=== PATIENT | male | born 1950 | race Caucasian/White ===

== ENCOUNTER 2016-10-20 02:35 | Emergency (ER) | payer BC ==
[2016-10-20] MEDS ORDERED: Sodium Chloride 0.9% 10 ML Syringe FLUSH PRN (03:07)
[2016-10-20 03:27] LABS: CHLORIDE,CL 98 mmol/L (98-107); SODIUM,NA 136 mmol/L (136-145)
--- NOTE | 2016-10-20 03:28 | EDM.PDOC ---
ED HPI GENERAL MEDICAL PROBLEM - General Chief Complaint: General Stated Complaint: dizziness Time Seen by Provider: 10/20/16 03:13 Source of Information: Reports: Patient History Limitations: Reports: No limitations - History of Present Illness INITIAL COMMENTS - FREE TEXT/NARRATIVE: Patient brought in by private vehicle for complaint of nausea and mild dizziness that started around 2am. Denies pain. No fevers. Has been exposed to illness at work. No URI complaints such as sore throat or cough. Has not had vomiting. No bowel changes. Feels a bit clammy upon arrival. Denies any significant past medical history. Non-smoker. Does have HTN and elevated lipids. . - Related Data Allergies Allergy/AdvReac Type Severity Reaction Status Date / Time Penicillins Allergy Rash Verified 10/20/16 02:51 Home Meds: Home Meds Aspirin [Ecotrin] 81 mg PO DAILY 10/20/16 [History] Cholecalciferol (Vitamin D3) [Vitamin D3] 1 ml PO DAILY 10/20/16 [History] Hydrochlorothiazide 25 mg PO DAILY 10/20/16 [History] Metoprolol Succinate [Toprol XL] 25 mg PO DAILY 10/20/16 [History] Oxybutynin 5 mg PO BID 10/20/16 [History] Simvastatin 1 tab PO BEDTIME 10/20/16 [History] Ubidecarenone [Co Q-10] 100 mg PO DAILY 10/20/16 [History] metFORMIN [Glucophage XR] 500 mg PO WITHDINNER #30 tab.er 10/20/16 [Rx] Past Medical History Cardiovascular History: Reports: High cholesterol, Hypertension ED ROS GENERAL - Review of Systems Review Of Systems: See Below Constitutional: Reports: diaphoresis. Denies: fever, chills, malaise, weakness , fatigue, decreased appetite, weight loss, weight gain HEENT: Reports: No symptoms Respiratory: Reports: no symptoms Cardiovascular: Reports: Lightheadedness. Denies: Chest pain, Dyspnea on exertion, Edema, Orthopnea, Palpitations, Syncope Endocrine: Reports: no symptoms GI/Abdominal: Reports: Nausea. Denies: Abdominal pain, Black stool, Bloody stool, Constipation, Diarrhea, Decreased appetite, Difficulty swallowing, Mucous in stool, Vomiting : Reports: no symptoms Musculoskeletal: Reports: no symptoms Skin: Reports: no symptoms Neurological: Reports: dizziness. Denies: confusion, headache, numbness, paresthesia, syncope, tingling, trouble speaking, difficulty walking, weakness, change in speech, gait disturbance Psychiatric: Reports: No symptoms Hematologic/Lymphatic: Reports: no symptoms Immunologic: Reports: no symptoms ED EXAM, GENERAL - Physical Exam Exam: See Below Exam Limited By: No limitations General Appearance: alert, WD/WN, no apparent distress Eye Exam: bilateral eye: EOMI, PERRL Ears: normal external exam, normal canal, hearing grossly normal, normal TMs Nose: normal inspection Throat/Mouth: Normal inspection, Normal voice, No airway compromise, Other ( recently had lower teeth pulled) Head: atraumatic, normocephalic Neck: normal inspection, supple, non-tender, full range of motion. No: lymphadenopathy (L), lymphadenopathy (R) Respiratory/Chest: no respiratory distress, lungs clear, normal breath sounds, no accessory muscle use, chest non-tender Cardiovascular: normal peripheral pulses, regular rate, rhythm, no edema, no JVD , no murmur Peripheral Pulses: 2+: radial (L), radial (R) GI/Abdominal: normal bowel sounds, soft, non tender, no organomegaly, no distention, no abnormal bruit (Male) Exam: Deferred Rectal (Males) Exam: Deferred Back Exam: normal inspection Extremities: normal inspection, normal range of motion, non-tender, no pedal edema, normal capillary refill Neurological: alert, oriented, CN II-XII intact, normal cognition, normal gait, normal reflexes, no motor/sensory deficits Psychiatric: normal affect, normal mood Skin Exam: Warm, Dry, Intact, Normal color, No rash EKG INTERPRETATION EKG Date: 10/20/16 Time: 02:52 Rhythm: other (Sinus bradycardia) Rate (beats/min): 59 [place]: LAD-left axis deviation P-wave: present ST-T: other (ST in V3 slightly unusual) QT: normal Comparison: NA - no prior EKG Course - Vital Signs Last Recorded V/S: Last Vital Signs Temp 36.4 C 10/20/16 02:40 Pulse 65 10/20/16 02:40 Resp 18 10/20/16 02:40 BP 177/87 H 10/20/16 02:40 Pulse Ox 97 10/20/16 02:40 - Orders/Labs/Meds Orders: Active Orders 24 hr Category Date Time Status Blood Glucose Check, Bedside [RC] ONETIME Care 10/20/16 03:07 Active EKG Documentation Completion [RC] ASDIRECTED Care 10/20/16 03:08 Active CBC WITH AUTO DIFF [HEME] Stat Lab 10/20/16 03:05 Received CMP [COMPREHENSIVE METABOLIC PN,CMP] [CHEM] Stat Lab 10/20/16 03:05 Received TROPONIN I [CHEM] Stat Lab 10/20/16 03:05 Received URINALYSIS W/MICROSCOPIC [UA W/MICROSCOPIC] [URIN] Stat Lab 10/20/16 03:08 Uncollected Sodium Chloride 0.9% [Saline Flush] Med 10/20/16 03:07 Active 10 ml FLUSH ASDIRECTED PRN Saline Lock Insert [OM.PC] Routine Oth 10/20/16 03:07 Ordered EKG 12 Lead [EK] Routine Ther 10/20/16 03:08 Ordered Medication Orders Sodium Chloride (Saline Flush) 10 ml FLUSH ASDIRECTED PRN PRN Reason: Keep Vein Open Meds: Medications Generic Name Dose Route Start Last Admin Trade Name Freq PRN Reason Stop Dose Admin Sodium Chloride 10 ml 10/20/16 03:07 Saline Flush FLUSH ASDIRECTED PRN Keep Vein Open - Re-Assessments/Exams Free Text/Narrative Re-Assessment/Exam: 10/20/16 03:52 Blood sugar 377. A1c is 10.8 CBC and troponin unremarkable. Serum ketones negative. Discussed implications of elevated sugar and A1c with patient. Advised admission to hospital for IV fluids and glucose control. Patient refused admission. Wants to go home. Says he will see his primary provider Sergey Conley early next week for physical/diabetes. Patient refused IV fluids in the ER also. Cannot rule out possible early VGE as cause of patient's GI complaints , however elevated blood sugar could be contributing to them also. Plan at this time is to have patient receive regular insulin SQ as well as Zofran. Extensive amount of time spent discussing diet approach to controlling diabetes and maximizing blood sugar control. Patient is to return to the ER for re- evaluation if symptoms become more severe. BP improved over time while in ER. Departure - Departure Time of Disposition: 04:15 Disposition: Against Medical Advice 07 Condition: good Clinical Impression: Nausea, Hyperglycemia Prescriptions: metFORMIN [Glucophage XR] 500 mg PO WITHDINNER #30 tab.er Forms: ED Department Discharge Additional Instructions: Eat low sugar diet, avoid processed foods. If you continue to feel bad tomorrow you need to come back to the ER to be re- evaluated. Follow up with your own provider ELIE next week. Call immediately Friday morning for appointment. We have started you on Metformin. Recommend starting with half a pill daily for one week then increase the dose to help avoid the side effect of loose stools. You will need to purchase a glucose monitory in order to keep track of your blood sugars. Discuss with your doctor getting set up for education on diabetes management. - My Orders Last 24 Hours: My Active Orders 10/20/16 03:05 CBC WITH AUTO DIFF [HEME] Stat CMP [COMPREHENSIVE METABOLIC PN,CMP] [CHEM] Stat TROPONIN I [CHEM] Stat 10/20/16 03:07 Blood Glucose Check, Bedside [RC] ONETIME Sodium Chloride 0.9% [Saline Flush] 10 ml FLUSH ASDIRECTED PRN Saline Lock Insert [OM.PC] Routine 10/20/16 03:08 EKG Documentation Completion [RC] ASDIRECTED URINALYSIS W/MICROSCOPIC [UA W/MICROSCOPIC] [URIN] Stat EKG 12 Lead [EK] Routine - Assessment/Plan Last 24 Hours: My Active Orders 10/20/16 03:05 CBC WITH AUTO DIFF [HEME] Stat CMP [COMPREHENSIVE METABOLIC PN,CMP] [CHEM] Stat TROPONIN I [CHEM] Stat 10/20/16 03:07 Blood Glucose Check, Bedside [RC] ONETIME Sodium Chloride 0.9% [Saline Flush] 10 ml FLUSH ASDIRECTED PRN Saline Lock Insert [OM.PC] Routine 10/20/16 03:08 EKG Documentation Completion [RC] ASDIRECTED URINALYSIS W/MICROSCOPIC [UA W/MICROSCOPIC] [URIN] Stat EKG 12 Lead [EK] Routine
[2016-10-20 03:35] VITALS: BP 148/91
[2016-10-20] MEDS ORDERED: Insulin Regular, Human 100 Units/ML 3 ML Vial SUBCUT ONE (03:42)
[2016-10-20] MEDS ORDERED: Ondansetron 4 MG Tab.DIS PO ONE (03:42)
[2016-10-20] MEDS ORDERED: Meclizine 25 MG Tab PO ONE (03:43)
[2016-10-20] MEDS ORDERED: metFORMIN 500 MG Tab PO ONE (03:58)
== END 2016-10-20 04:15 | disposition left against medical advice (07) ==
LOC: LL.ED 02:35
DX: R11.0 Nausea (principal); R73.9 Hyperglycemia, unspecified; E78.00 Pure hypercholesterolemia, unspecified; I10 Essential (primary) hypertension; Z88.0 Allergy status to penicillin; Z79.899 Other long term (current) drug therapy
CPT/HCPCS: 36000; 36415; 80053; 81001; 82009; 83036; 84484; 85025; 93005; 96372; 99284; A9270; J1815

== ENCOUNTER 2017-11-13 11:30 | Day surgery (SDC) | payer BC ==
[2017-11-13] MEDS ORDERED: Propofol 200 MG/20 ML SDV ONE (11:51)
[2017-11-13] MEDS: Lactated Ringers 1,000 ML IV SCH (12:00)
[2017-11-13] MEDS ORDERED: Sodium Chloride 0.9% 10 ML Syringe FLUSH PRN (12:00)
--- NOTE | 2017-11-13 12:25 | PCM.OPNOTE ---
- General Post-Op/Procedure Note Date of Surgery/Procedure: 11/13/17 Operative Procedure(s): Colonoscopy Findings: Normal Pre Op Diagnosis: FH colon polyp Post-Op Diagnosis: Same Anesthesia Technique: MAC Primary Surgeon: Armand Suárez Complications: None Condition: Good Free Text/Narrative:: Intake & Output 11/12/17 11/13/17 11/13/17 22:59 06:59 14:59 Intake Total 600 Balance 600
[2017-11-13 14:26] VITALS: BP 118/75
--- NOTE | 2017-11-13 15:15 | OR ---
Date of Procedure: 11/13/2017 PREOPERATIVE DIAGNOSIS: Family history of colon polyps in brother. POSTOPERATIVE DIAGNOSIS: Normal colonoscopy. PROCEDURE: Colonoscopy. ANESTHESIA: IV sedation. PROCEDURE IN DETAIL: The patient was brought to the procedure room where he was placed on his left side, and IV sedation was administered. Digital rectal exam was performed which was normal. Colonoscope was inserted and advanced to the level of the cecum without difficulty. Cecal position was confirmed by identifying the appendiceal lumen and ileocecal valve. Prep was good and surfaces were well visualized. Upon withdrawing the scope, the ascending, transverse, and descending colon were normal in appearance. Sigmoid colon and rectum were normal. Retroflexion was normal. Air was removed and the scope withdrawn. The patient tolerated the procedure well and returned to Recovery in stable condition. Recommend routine colon screening in 5 years. KUMAR PHELPS MD /[id number]
== END 2017-11-13 13:35 | disposition home or self-care (01) ==
LOC: LL.SDS 11:30
PROVIDERS: ATTEND Surgery
DX: Z12.11 Encounter for screening for malignant neoplasm of colon (principal); I10 Essential (primary) hypertension; E11.9 Type 2 diabetes mellitus without complications; I25.10 Atherosclerotic heart disease of native coronary artery without angina pectoris; K21.9 Gastro-esophageal reflux disease without esophagitis; E78.5 Hyperlipidemia, unspecified; Z83.71 Family history of colonic polyps; Z88.0 Allergy status to penicillin; Z79.82 Long term (current) use of aspirin; Z79.84 Long term (current) use of oral hypoglycemic drugs; Z79.899 Other long term (current) drug therapy
CPT/HCPCS: 82962; J7120

== ENCOUNTER 2018-04-19 14:01 | Emergency (ER) | payer BC ==
[2018-04-19] MEDS ORDERED: Aspirin 81 MG Tab.Chew ONE (14:14)
[2018-04-19] MEDS ORDERED: Aspirin 81 MG Tab.Chew PO ONE (14:15)
[2018-04-19 14:43] LABS: CHLORIDE,CL 102 mmol/L (98-107); SODIUM,NA 140 mmol/L (136-145)
[2018-04-19] MEDS: Sodium Chloride 0.9% 500 ML IV SCH ×2 (16:17→17:03)
[2018-04-19] MEDS ORDERED: Meclizine 25 MG Tab PO ONE (16:57)
[2018-04-19] MEDS ORDERED: Sodium Chloride 0.9% 500 ML IV SCH (17:00)
[2018-04-19] MEDS ORDERED: Ondansetron 4 MG/2 ML SDV IVPUSH ONE (17:03)
--- NOTE | 2018-04-19 17:56 | EDM.PDOC ---
ED HPI GENERAL MEDICAL PROBLEM - General Chief Complaint: General Stated Complaint: dizziness, lightheadedness Time Seen by Provider: 04/19/18 14:30 Source of Information: Reports: Patient History Limitations: Reports: No Limitations - History of Present Illness INITIAL COMMENTS - FREE TEXT/NARRATIVE: Patient comes to ER with complaint of feeling lightheaded/dizzy/nauseated. Did have some emesis at home. This started 2 hours prior to presenting to ER. Patient had similar episode around 6 weeks ago that also lasted around 2 hours but eventually resolved on own. Nothing specifically makes symptoms better/worse, including head rotation and positional changes/activity. No medication changes/injuries prior to either episode. Denies focal neuro changes/weakness. No other illnesses. Has family history of CAD/PEs. Nonsmoker. - Related Data Allergies Allergy/AdvReac Type Severity Reaction Status Date / Time Penicillins Allergy Rash Verified 04/19/18 14:28 Home Meds: Home Meds Aspirin [Ecotrin] 81 mg PO DAILY@219910/20/16 [History] Cholecalciferol (Vitamin D3) [Vitamin D3] 1 drop PO DAILY@1400 10/20/16 [History ] Hydrochlorothiazide 25 mg PO DAILY@219910/20/16 [History] Oxybutynin 10 mg PO BID@1400,219910/20/16 [History] Simvastatin 1 tab PO DAILY@219910/20/16 [History] Ubidecarenone [Co Q-10] 800 mg PO DAILY@1400 10/20/16 [History] Ibuprofen 3 tab PO Q6HR PRN 11/13/17 [History] Lisinopril 1 tab PO DAILY@219911/13/17 [History] metFORMIN [Glucophage XR] 1,000 mg PO BID@1400,219911/13/17 [History] Past Medical History Cardiovascular History: Reports: High Cholesterol, Hypertension Genitourinary History: Reports: BPH Endocrine/Metabolic History: Reports: Diabetes, Type II Other Endocrine/Metabolic History: new onset DM II - Past Surgical History HEENT Surgical History: Reports: Oral Surgery, Other (See Below) Other HEENT Surgeries/Procedures: Dental Implants in 2017 Social & Family History - Family History Cardiac: Reports: Blood Clots/VTE/DVT, CAD - Tobacco Use Smoking Status *Q: Never Smoker - Caffeine Use Caffeine Use: Reports: Coffee - Alcohol Use Alcohol Use History: Yes Alcohol Use Frequency: Rarely, Socially - Recreational Drug Use Recreational Drug Use: No ED ROS GENERAL - Review of Systems Review Of Systems: See Below Constitutional: Reports: Diaphoresis, Decreased Appetite. Denies: Fever, Chills HEENT: Reports: No Symptoms Respiratory: Reports: No Symptoms Cardiovascular: Reports: Lightheadedness. Denies: Chest Pain, Dyspnea on Exertion, Palpitations, Syncope Endocrine: Reports: Other (does not usually check blood sugars at home. ) GI/Abdominal: Reports: Nausea, Vomiting. Denies: Abdominal Pain, Constipation, Diarrhea, Hematemesis, Hematochezia : Reports: No Symptoms Musculoskeletal: Reports: No Symptoms Skin: Reports: No Symptoms Neurological: Reports: Dizziness. Denies: Confusion, Headache, Numbness, Paresthesia, Seizure, Syncope, Tingling, Tremors, Trouble Speaking, Weakness, Change in Speech, Gait Disturbance Psychiatric: Reports: No Symptoms Hematologic/Lymphatic: Reports: No Symptoms ED EXAM, GENERAL - Physical Exam Exam: See Below Exam Limited By: No Limitations General Appearance: Alert, WD/WN, Mild Distress, Other (Very pale when he first arrived to ER) Eye Exam: Bilateral Eye: EOMI, PERRL, Other (no nystagmus with head rotation) Ears: Normal External Exam, Normal Canal, Hearing Grossly Normal, Normal TMs Nose: Normal Inspection Throat/Mouth: Normal Inspection, Normal Lips, Normal Gums, Normal Oropharynx, Normal Voice, No Airway Compromise Head: Atraumatic, Normocephalic Neck: Normal Inspection, Supple, Non-Tender, Full Range of Motion. No: Carotid Bruit, Lymphadenopathy (L), Lymphadenopathy (R) Respiratory/Chest: No Respiratory Distress, Lungs Clear, Normal Breath Sounds, No Accessory Muscle Use Cardiovascular: Normal Peripheral Pulses, Regular Rate, Rhythm, No Edema, No Murmur Peripheral Pulses: 2+: Radial (L), Radial (R), Dorsalis Pedis (L), Dorsalis Pedis (R) GI/Abdominal: Normal Bowel Sounds, Soft, Non-Tender, No Distention (Male) Exam: Deferred Rectal (Males) Exam: Deferred Back Exam: Normal Inspection. No: CVA Tenderness (L), CVA Tenderness (R), Muscle Spasm, Paraspinal Tenderness, Vertebral Tenderness Extremities: Normal Inspection, Normal Range of Motion, Non-Tender, No Pedal Edema, Normal Capillary Refill Neurological: Alert, Oriented, CN II-XII Intact, Normal Cognition, Normal Gait, Normal Reflexes, No Motor/Sensory Deficits Psychiatric: Normal Affect, Normal Mood Skin Exam: Warm, Dry, Intact, Normal Color (color improved during exam, paleness resolved), No Rash EKG INTERPRETATION EKG Date: 04/19/18 Time: 14:06 Rhythm: Other (sinus bradycardia) Rate (Beats/Min): 54 [place]: LAD-Left [place] Deviation P-Wave: Present QRS: Normal ST-T: Normal QT: Normal Comparison: No Change Course - Vital Signs Last Recorded V/S: Last Vital Signs Temp 36.1 C 04/19/18 16:56 Pulse 47 L 04/19/18 17:20 Resp 20 04/19/18 17:20 BP 145/56 H 04/19/18 17:20 Pulse Ox 100 04/19/18 17:20 - Orders/Labs/Meds Orders: Active Orders 24 hr Category Date Time Status EKG Documentation Completion [RC] ASDIRECTED Care 04/19/18 14:10 Active EKG Documentation Completion [RC] ASDIRECTED Care 04/19/18 17:23 Active Chest 1V Frontal [CR] Stat Exams 04/19/18 14:13 Taken Head wo Cont [CT] Stat Exams 04/19/18 14:53 Taken UA W/MICROSCOPIC [URIN] Stat Lab 04/19/18 14:18 Ordered Sodium Chloride 0.9% [Normal Saline] 500 ml Med 04/19/18 16:30 Active IV .BOLUS Sodium Chloride 0.9% [Normal Saline] 500 ml Med 04/19/18 17:00 Ordered IV .BOLUS EKG 12 Lead [EK] Routine Ther 04/19/18 17:23 Ordered Medication Orders Sodium Chloride (Normal Saline) 500 mls @ 999 mls/hr IV .BOLUS ANTHONY Last Admin: 04/19/18 17:03 Dose: 999 mls/hr Infusion: 04/19/18 16:48 Dose: 999 mls/hr Admin: 04/19/18 16:17 Dose: 999 mls/hr Sodium Chloride (Normal Saline) 500 mls @ 999 mls/hr IV .BOLUS ANTHONY Labs: Laboratory Tests 04/19/18 04/19/18 04/19/18 Range/Units 14:10 14:10 14:10 WBC 6.7 (4.0-10.2) K/uL RBC 4.09 L (4.33-5.41) M/uL Hgb 12.1 L D (13.1-16.8) g/dL Hct 35.2 L (39.0-49.0) % MCV 86.1 D (84.0-98.0) fL MCH 29.6 (28.2-33.3) pg MCHC 34.4 (31.7-36.0) g/dL RDW 12.6 (11.2-14.1) % Plt Count 215 (150-350) K/uL Neut % (Auto) 62.4 (45.0-80.0) % Lymph % (Auto) 24.1 (10.0-50.0) % [place] % (Auto) 8.7 (2.0-14.0) % Eos % (Auto) 4.5 (0.0-5.0) % Baso % (Auto) 0.3 (0.0-2.0) % Neut # (Auto) 4.18 (1.40-7.00) K/uL Lymph # (Auto) 1.61 (0.50-3.50) K/uL [place] # (Auto) 0.58 (0.00-1.00) K/uL Eos # (Auto) 0.30 (0.00-0.50) K/uL Baso # (Auto) 0.02 (0.00-0.20) K/uL PT 11.3 (9.8-11.7) SEC INR 1.1 APTT 24.0 (22.1-29.8) SEC D-Dimer, Quantitative (0-400) ng/mL Sodium 140 (136-145) mmol/L Potassium 3.6 (3.5-5.1) mmol/L Chloride 102 (98-107) mmol/L Carbon Dioxide 26.0 (21.0-32.0) mmol/L BUN 22 H (7-18) mg/dL Creatinine 0.77 (0.51-1.17) mg/dL Est Cr Clr Drug Dosing 97.44 mL/min Estimated GFR (MDRD) > 60 mL/min Glucose 161 H (74-106) mg/dL Calcium 9.4 (8.5-10.1) mg/dL Magnesium 1.3 L (1.8-2.4) mg/dL Total Bilirubin 0.5 (0.2-1.0) mg/dL AST 15 (15-37) U/L ALT 21 (12-78) U/L Alkaline Phosphatase 71 (46-116) IU/L Creatine Kinase 99 (26-308) U/L Creatine Kinase Index 1.2 (0.0-2.5) % CK-MB (CK-2) 1.20 (0.00-3.60) ng/mL Troponin I 0.000 (0.000-0.056) ng/mL NT-Pro-B Natriuret Pep (0-125) pg/mL Total Protein 7.2 (6.4-8.2) g/dL Albumin 4.1 (3.4-5.0) g/dL 04/19/18 04/19/18 Range/Units 14:10 14:10 WBC (4.0-10.2) K/uL RBC (4.33-5.41) M/uL Hgb (13.1-16.8) g/dL Hct (39.0-49.0) % MCV (84.0-98.0) fL MCH (28.2-33.3) pg MCHC (31.7-36.0) g/dL RDW (11.2-14.1) % Plt Count (150-350) K/uL Neut % (Auto) (45.0-80.0) % Lymph % (Auto) (10.0-50.0) % [place] % (Auto) (2.0-14.0) % Eos % (Auto) (0.0-5.0) % Baso % (Auto) (0.0-2.0) % Neut # (Auto) (1.40-7.00) K/uL Lymph # (Auto) (0.50-3.50) K/uL [place] # (Auto) (0.00-1.00) K/uL Eos # (Auto) (0.00-0.50) K/uL Baso # (Auto) (0.00-0.20) K/uL PT (9.8-11.7) SEC INR APTT (22.1-29.8) SEC D-Dimer, Quantitative 406 H (0-400) ng/mL Sodium (136-145) mmol/L Potassium (3.5-5.1) mmol/L Chloride (98-107) mmol/L Carbon Dioxide (21.0-32.0) mmol/L BUN (7-18) mg/dL Creatinine (0.51-1.17) mg/dL Est Cr Clr Drug Dosing mL/min Estimated GFR (MDRD) mL/min Glucose (74-106) mg/dL Calcium (8.5-10.1) mg/dL Magnesium (1.8-2.4) mg/dL Total Bilirubin (0.2-1.0) mg/dL AST (15-37) U/L ALT (12-78) U/L Alkaline Phosphatase (46-116) IU/L Creatine Kinase (26-308) U/L Creatine Kinase Index (0.0-2.5) % CK-MB (CK-2) (0.00-3.60) ng/mL Troponin I (0.000-0.056) ng/mL NT-Pro-B Natriuret Pep 86 (0-125) pg/mL Total Protein (6.4-8.2) g/dL Albumin (3.4-5.0) g/dL Meds: Medications Generic Name Dose Route Start Last Admin Trade Name Freq PRN Reason Stop Dose Admin Sodium Chloride 500 mls @ 999 mls/hr 04/19/18 16:30 04/19/18 17:03 Normal Saline IV 999 mls/hr .BOLUS ANTHONY Administration Sodium Chloride 500 mls @ 999 mls/hr 04/19/18 17:00 Normal Saline IV .BOLUS ANTHONY Discontinued Medications Generic Name Dose Route Start Last Admin Trade Name Freq PRN Reason Stop Dose Admin Aspirin 324 mg 04/19/18 14:15 04/19/18 14:16 Aspirin PO 04/19/18 14:16 324 mg ONETIME ONE Administration Aspirin Confirm 04/19/18 14:14 04/19/18 14:17 Aspirin Administered 04/19/18 14:15 Not Given Dose 324 mg .ROUTE .STK-MED ONE Magnesium Sulfate/Dextrose 1 gm 04/19/18 14:51 04/19/18 14:55 Magnesium 1 Gm In D5w 100 Ml IV 04/19/18 14:52 1 gm ONETIME ONE Administration Meclizine HCl 25 mg 04/19/18 16:57 04/19/18 17:04 Antivert PO 04/19/18 16:58 25 mg ONETIME ONE Administration Ondansetron HCl 4 mg 04/19/18 17:03 04/19/18 17:09 Zofran IVPUSH 04/19/18 17:04 4 mg ONETIME ONE Administration - Radiology Interpretation Free Text/Narrative:: Chest Xray unremarkable - Re-Assessments/Exams Free Text/Narrative Re-Assessment/Exam: Patient's color and complaint of nausea/emesis improved shortly after arrival to ER. Dizziness improved however patient said he was still slightly dizzy when he got up to get xray/move about. Vital signs stable Labs unremarkable except for low Mg at 1.3 As low Mag can cause dizziness and nausea, patient give 1g dose IV followed by IV NS. Observed for several hours. He then had a return of feeling very dizzy/ nauseated and became noticeably quite pale. Systolic BP became more elevated, heart rate noted to actually decrease and was at times in high 40s. Second EKG performed at this time (1718) which showed no acute changes other than rate of 53. Uncertain is bradycardia is causing patient's complaints. Call placed to [facility] to discuss patient with Hospitalist. It was decided to transfer patient there so that he could continue to be monitored and Cardiology could consult if needed. Patient accepted in transfer by . Departure - Departure Time of Disposition: 17:51 Disposition: DC/Tfer to Acute Hospital 02 Condition: Good Clinical Impression: Hypomagnesemia Syncopal episodes Qualifiers: Syncope type: unspecified Qualified Code(s): R55 - Syncope and collapse - Discharge Information *PRESCRIPTION DRUG MONITORING PROGRAM REVIEWED*: Not Applicable *COPY OF PRESCRIPTION DRUG MONITORING REPORT IN PATIENT SABRINA: Not Applicable Instructions: Hypomagnesemia, Magnesium Sulfate injection Referrals: Sergey Conley PA [Primary Care Provider] - Forms: ED Department Discharge Additional Instructions: Drive directly to [facility]. They are expecting you. - My Orders Last 24 Hours: My Active Orders 04/19/18 14:10 EKG Documentation Completion [RC] ASDIRECTED 04/19/18 14:13 Chest 1V Frontal [CR] Stat 04/19/18 14:18 UA W/MICROSCOPIC [URIN] Stat 04/19/18 14:53 Head wo Cont [CT] Stat 04/19/18 16:30 Sodium Chloride 0.9% [Normal Saline] 500 ml IV .BOLUS 04/19/18 17:00 Sodium Chloride 0.9% [Normal Saline] 500 ml IV .BOLUS 04/19/18 17:23 EKG Documentation Completion [RC] ASDIRECTED EKG 12 Lead [EK] Routine - Assessment/Plan Last 24 Hours: My Active Orders 04/19/18 14:10 EKG Documentation Completion [RC] ASDIRECTED 04/19/18 14:13 Chest 1V Frontal [CR] Stat 04/19/18 14:18 UA W/MICROSCOPIC [URIN] Stat 04/19/18 14:53 Head wo Cont [CT] Stat 04/19/18 16:30 Sodium Chloride 0.9% [Normal Saline] 500 ml IV .BOLUS 04/19/18 17:00 Sodium Chloride 0.9% [Normal Saline] 500 ml IV .BOLUS 04/19/18 17:23 EKG Documentation Completion [RC] ASDIRECTED EKG 12 Lead [EK] Routine
[2018-04-19 19:09] VITALS: BP 160/67
== END 2018-04-19 18:30 ==
LOC: LL.ED 14:01
DX: E83.42 Hypomagnesemia (principal); R55 Syncope and collapse; E78.00 Pure hypercholesterolemia, unspecified; I10 Essential (primary) hypertension; E11.9 Type 2 diabetes mellitus without complications; Z79.82 Long term (current) use of aspirin; Z79.899 Other long term (current) drug therapy; Z88.0 Allergy status to penicillin; Z79.84 Long term (current) use of oral hypoglycemic drugs
CPT/HCPCS: 36415; 70450; 71045; 80053; 82550; 82553; 83735; 83880; 84484; 85025; 85379; 85610; 85730; 93005; 96361; 96365; 96375; 99285; A9270-GY; J2405; J3475; J7040

== ENCOUNTER 2020-06-28 02:01 | Emergency (ER) | payer BC ==
[2020-06-28 02:11] VITALS: BP 120/61; PULSE 98
[2020-06-28] MEDS ORDERED: Bacitracin/Neomycin/Polymyxin B Oint 0.9 GM U/D Packet TOP ONE (02:29)
[2020-06-28] MEDS ORDERED: Diphtheria,Pertussis(Acell),Tetanus Vaccine 0.5 ML Syringe IM ONE (02:29)
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
== END 2020-06-28 03:30 | disposition home or self-care (01) ==
LOC: LL.ED 02:01
DX: S61.411A Laceration without foreign body of right hand, initial encounter (principal); E78.5 Hyperlipidemia, unspecified; I10 Essential (primary) hypertension; M89.49 Other hypertrophic osteoarthropathy, multiple sites; E11.9 Type 2 diabetes mellitus without complications; J44.9 Chronic obstructive pulmonary disease, unspecified; M19.90 Unspecified osteoarthritis, unspecified site; Z23 Encounter for immunization; Z88.0 Allergy status to penicillin; Z79.82 Long term (current) use of aspirin; Z79.84 Long term (current) use of oral hypoglycemic drugs; Z79.899 Other long term (current) drug therapy; W26.8XXA Contact with other sharp object(s), not elsewhere classified, initial encounter
CPT/HCPCS: 12002; 90471; 90715; 99282-25; J2001